=== PATIENT | male | born 1965 ===

== ENCOUNTER 2017-11-26 09:36 | Day surgery (SDC) | payer OTHER ==
[~2017-11-26] VITALS: Ht 200.7 cm; Wt 127.3 kg
[2017-11-26] MEDS ORDERED: SODIUM CHLORIDE 0.9% 1,000 ML IV ONE (10:34)
[2017-11-26 10:41] VITALS: BP 148/102
[2017-11-26] MEDS ORDERED: PLEASE ENTER HEIGHT AND WEIGHT MC SCH (11:00)
[2017-11-26] MEDS ORDERED: DIPHENHYDRAMINE 50 MG/ML, 1ML IVPush ONE (11:00)
[2017-11-26 11:14] LABS: BASOPHILS # (AUTO) 0.03 x10^3/uL (0-0.1); BASOPHILS % (AUTO) 0 % (0-1); EOSINOPHILS # (AUTO) 0.07 x10^3/uL (0-0.4); EOSINOPHILS % (AUTO) 1 % (1-7); LYMPHOCYTES # (AUTO) 1.73 x10^3/uL (1-3.4); LYMPHOCYTES % (AUTO) 28 % (22-44); MD NO; MEAN CORPUSCULAR HEMOGLOBIN 29.7 pg (27.5-34.5); MEAN CORPUSCULAR HGB CONC 33.6 g/dL (33.2-36.2); MEAN CORPUSCULAR VOLUME 88.4 fL (81-97); MEAN PLATELET VOLUME 9.3 fL (7.4-10.4); MONOCYTES # (AUTO) 0.45 x10^3/uL (0.2-0.8); MONOCYTES % (AUTO) 7 % (2-9); NEUTROPHILS # (AUTO) 3.93 x10^3/uL (1.8-6.8); NEUTROPHILS % (AUTO) 63 % (42-75); PLATELET COUNT 186 x10^3/uL (130-400); RED BLOOD COUNT 5.66 x10^6/uL (4.38-5.82); RED CELL DISTRIBUTION WIDTH 12.9 % (9.4-14.8)
[2017-11-26] MEDS ORDERED: ESOM40CA PO (11:16)
[2017-11-26] MEDS ORDERED: ATOR40TA78 PO (11:16)
[2017-11-26] MEDS ORDERED: ASPI-621 PO (11:16)
[2017-11-26] MEDS ORDERED: LISI40TA PO (11:16)
[2017-11-26] MEDS ORDERED: METO-95 PO (11:16)
[2017-11-26] MEDS ORDERED: METF500T4 PO (11:16)
[2017-11-26] MEDS ORDERED: GABA-826 PO (11:16)
[2017-11-26] MEDS ORDERED: DIPHENHYDRAMINE 50 MG/ML, 1ML ONE (11:20)
[2017-11-26 11:21] LABS: INTERNATIONAL NORMALIZED RATIO 0.99 (0.93-1.1); PROTHROMBIN TIME 10.2 Seconds (9.6-11.5)
[2017-11-26 11:25] LABS: ANION GAP 6 mmol/L (5-15); CALCIUM 8.5 mg/dL (8.5-10.1); CHLORIDE 106 mmol/L (98-107); CREATININE 0.93 mg/dL (0.7-1.3)
[2017-11-26] MEDS ORDERED: HEPARIN 1,000 UNITS/ML, 10ML ONE (11:49)
[2017-11-26] MEDS ORDERED: MIDAZOLAM 1 MG/ML, 2ML ONE ×2 (11:49→12:21)
[2017-11-26] MEDS ORDERED: FENTANYL PF 100 MCG/2ML ONE (11:49)
[2017-11-26] MEDS ORDERED: LIDOCAINE 2%, 20ML ONE (11:49)
[2017-11-26] MEDS ORDERED: VERAPAMIL 2.5 MG/ML, 2ML ONE (12:10)
[2017-11-26] MEDS ORDERED: SODIUM CHLORIDE 0.9% 1,000 ML IV SCH (13:06)
[2017-11-26] MEDS ORDERED: ISOS30TA8 PO (13:27)
== END 2017-11-26 15:54 | disposition home or self-care (01) ==
LOC: CACL 09:36
PROVIDERS: ATTEND Internal Medicine Cardiovascular Disease
DX: I25.119 Atherosclerotic heart disease of native coronary artery with unspecified angina pectoris (principal); I21.9 Acute myocardial infarction, unspecified; E11.9 Type 2 diabetes mellitus without complications; I10 Essential (primary) hypertension
CPT/HCPCS: 36415; 80048; 85025; 85610; 93454; 99156; 99157; C1894; C8929; J1200; J1644; J2250; J3010; J3490; J7030; Q9967

== ENCOUNTER → 2018-12-16 | Outpatient (CLI) | payer OTHER ==
[~2018-12-16] MED LIST: ASPI81TA45 PO; ATOR40TA78 PO; ESOM40CA PO; GABA-826 PO; ISOS30TA8 PO; LISI40TA PO; METF500T17 PO; METO-95 PO
== END | disposition home or self-care (01) ==
LOC: CVU 09:16
PROVIDERS: ATTEND Internal Medicine Cardiovascular Disease
DX: I25.5 Ischemic cardiomyopathy (principal); I10 Essential (primary) hypertension; E11.9 Type 2 diabetes mellitus without complications
CPT/HCPCS: C8929; Q9957